=== PATIENT | female | born 1995 | race Caucasian/White ===

== ENCOUNTER 2018-07-31 15:06 | Emergency (ER) | payer BC ==
[2018-07-31] MEDS ORDERED: Albuterol/Ipratropium 3.0-0.5 MG/3 ML Neb Soln NEB ONE (16:02)
[2018-07-31] MEDS ORDERED: Albuterol 6.7 GM Inhaler INH ONE (16:10)
--- NOTE | 2018-07-31 16:31 | EDM.PDOC ---
Scribed by Carlee Barrett 07/31/18 1617 for Ino Brooks MD ED HPI GENERAL MEDICAL PROBLEM - General Chief Complaint: Respiratory Problem Stated Complaint: CANT BREATHE, 16 WEEKS [id number] Time Seen by Provider: 07/31/18 15:09 Source of Information: Reports: Patient, RN, RN Notes Reviewed History Limitations: Reports: No Limitations - History of Present Illness INITIAL COMMENTS - FREE TEXT/NARRATIVE: Patient complains that she has runny nose, congestion, cough and wheezing. She presented to the ER due to the wheezing. Symptoms began yesterday and worse today. She is 16 weeks . Denies fever or chills. Denies any related issues with this visit. Onset Date: 07/30/18 Duration: Constant Location: Reports: Generalized Quality: Reports: Ache Severity: Moderate Improves with: Reports: None Worsens with: Reports: None Associated Symptoms: Reports: No Other Symptoms - Related Data Allergies Allergy/AdvReac Type Severity Reaction Status Date / Time Penicillins Allergy Rash Verified 07/31/18 15:37 Home Meds: Home Meds PNV95/Ferrous Fumarate/FA [ Tablet] 1 tab PO DAILY 07/31/18 [History] Past Medical History LMP (Approximate): Social & Family History - Family History Family Medical History: Noncontributory - Tobacco Use Smoking Status *Q: Never Smoker - Living Situation & Occupation Living situation: Reports: , with Family ED ROS GENERAL - Review of Systems Review Of Systems: ROS reveals no pertinent complaints other than HPI. ED EXAM, GENERAL - Physical Exam Exam: See Below Exam Limited By: No Limitations General Appearance: Alert, WD/WN, No Apparent Distress Eye Exam: Bilateral Eye: Normal Inspection Ears: Normal External Exam, Normal Canal, Hearing Grossly Normal, Normal TMs Nose: Clear Rhinorrhea Throat/Mouth: Normal Inspection, Normal Lips, Normal Teeth, Normal Gums, Normal Oropharynx, Normal Voice, No Airway Compromise Head: Atraumatic, Normocephalic Neck: Normal Inspection, Supple, Non-Tender, Full Range of Motion. No: Lymphadenopathy (L), Lymphadenopathy (R) Respiratory/Chest: No Respiratory Distress, No Accessory Muscle Use, Chest Non- Tender, Wheezing. No: Crackles, Rales, Rhonchi Cardiovascular: Regular Rate, Rhythm, Tachycardia Back Exam: Normal Inspection. No: CVA Tenderness (L), CVA Tenderness (R) Extremities: Normal Inspection, Normal Range of Motion, Non-Tender, No Pedal Edema. No: Joint Swelling, Gilma's Sign Neurological: Alert, Oriented, Normal Cognition, No Motor/Sensory Deficits Psychiatric: Normal Affect, Normal Mood Skin Exam: Warm, Dry, Intact, Normal Color, No Rash Course - Vital Signs Last Recorded V/S: Last Vital Signs Temp 36.7 C 07/31/18 15:20 Pulse 103 H 07/31/18 16:15 Resp 20 07/31/18 15:20 BP 129/82 07/31/18 15:20 Pulse Ox 97 07/31/18 15:20 - Orders/Labs/Meds Orders: Active Orders 24 hr Category Date Time Status RT Aerosol Therapy [RC] ASDIRECTED Care 07/31/18 16:02 Active Meds: Medications Discontinued Medications Generic Name Dose Route Start Last Admin Trade Name Freq PRN Reason Stop Dose Admin Albuterol Confirm 07/31/18 16:10 07/31/18 16:24 Proventil Hfa Administered 07/31/18 16:11 2 puff Dose Administration 6.7 gm INH .STK-MED ONE Albuterol/Ipratropium 3 ml 07/31/18 16:02 07/31/18 16:05 Duoneb 3.0-0.5 Mg/3 Ml NEB 07/31/18 16:03 3 ml ONETIME ONE Administration - Re-Assessments/Exams Free Text/Narrative Re-Assessment/Exam: 07/31/18 16:27 Wheezing resolved following DuoNeb tx in ER. R.T. instructed pt in use of albuterol inhaler with spacer device. Low index of suspicion for serious bacteria pneumonia, or P.E. Departure - Departure Time of Disposition: 16:28 Disposition: Home, Self-Care 01 Condition: Good Clinical Impression: URI (upper respiratory infection) Qualifiers: URI type: unspecified viral URI Qualified Code(s): J06.9 - Acute upper respiratory infection, unspecified RAD (reactive airway disease) with wheezing Qualifiers: Asthma severity: mild Asthma persistence: persistent Asthma complication type: with acute exacerbation Qualified Code(s): J45.31 - Mild persistent asthma with (acute) exacerbation - Discharge Information *PRESCRIPTION DRUG MONITORING PROGRAM REVIEWED*: No *COPY OF PRESCRIPTION DRUG MONITORING REPORT IN PATIENT GREG: No Instructions: Viral Respiratory Infection, [id number], Bronchospasm, Adult Forms: ED Department Discharge Additional Instructions: Use Albuterol Inhaler with spacer: 2 puffs every 4 hours as needed for wheezing. Call your [employer] doctor tomorrow to arrange a follow up appointment this week if needed. Return to ER if worse at any time, or if you develop a fever, or any other concerning symptoms. - My Orders Last 24 Hours: My Active Orders 07/31/18 16:02 RT Aerosol Therapy [RC] ASDIRECTED - Assessment/Plan Last 24 Hours: My Active Orders 07/31/18 16:02 RT Aerosol Therapy [RC] ASDIRECTED I have read and agree with the documentation that has been completed regarding this visit. By signing this record, I attest that the documentation was completed in my physical presence and is an accurate record of the encounter.
== END 2018-07-31 16:45 | disposition home or self-care (01) ==
LOC: DL.ED 15:06
DX: O99.512 Diseases of the respiratory system complicating pregnancy, second trimester (principal); J45.31 Mild persistent asthma with (acute) exacerbation; J06.9 Acute upper respiratory infection, unspecified; Z3A.16 16 weeks gestation of pregnancy; Z88.0 Allergy status to penicillin
CPT/HCPCS: 94640; 94664; 99285; A9270; J7620-GY